=== PATIENT | male | born 1975 | race Caucasian/White ===

== ENCOUNTER 2020-05-15 20:26 | Emergency (ER) | payer OTHER ==
[~2020-05-15] VITALS: Ht 172.7 cm; Wt 87.6 kg
[2020-05-15] MEDS ORDERED: ZOLO50TA PO (20:34)
[2020-05-15] MEDS ORDERED: BUPIVACAINE HCL 0.5% 30 ML VIAL SC ONE (21:15)
[2020-05-15 22:04] VITALS: BP 132/89
== END 2020-05-15 22:07 | disposition home or self-care (01) ==
LOC: M ED 20:26
DX: S29.012A Strain of muscle and tendon of back wall of thorax, initial encounter (principal); X50.9XXA Other and unspecified overexertion or strenuous movements or postures, initial encounter; Y92.89 Other specified places as the place of occurrence of the external cause; F33.9 Major depressive disorder, recurrent, unspecified; Z79.899 Other long term (current) drug therapy

== ENCOUNTER → 2020-09-19 | Outpatient (CLI) | payer OTHER ==
[~2020-09-19] MED LIST: ZOLO50TA PO
--- NOTE | 2020-09-19 17:34 | REP ---
INDICATION: PAIN. COMPARISON: None. TECHNIQUE: Three views FINDINGS: AC joint shows minor spurring inferiorly and slight narrowing of the joint space. There is no elevation of the clavicle in relationship to the acromion. No visible fracture of the clavicle, scapula, ribs or humeral head. Minor degenerative changes inferior aspect of the glenohumeral joint without subluxation, dislocation or abnormal soft tissue calcification. IMPRESSION: 1. AC and glenohumeral joint minor degenerative changes. No subluxation, dislocation, AC joint separation or abnormal soft tissue calcification. <Electronically signed by Fan Jorgensen > 09/19/20 [id number]
== END ==
LOC: M WUC 16:18
PROVIDERS: ATTEND Physician Assistant
DX: M19.011 Primary osteoarthritis, right shoulder (principal)

== ENCOUNTER → 2021-02-09 | Outpatient (CLI) | payer OTHER | LOC: M SLEEP 20:00 | PROVIDERS: ATTEND Nurse Practitioner Family | DX: R40.0 Somnolence (principal) ==

== ENCOUNTER → 2021-04-13 | Outpatient (CLI) | payer OTHER | LOC: M SLEEP 20:00 | PROVIDERS: ATTEND Physician Assistant | DX: G47.33 Obstructive sleep apnea (adult) (pediatric) (principal); G47.31 Primary central sleep apnea ==

== ENCOUNTER 2023-03-02 23:54 | Emergency (ER) | payer OTHER | END 2023-03-03 00:40 | disposition left against medical advice (07) | LOC: M ED 23:54 | DX: Z53.21 Procedure and treatment not carried out due to patient leaving prior to being seen by health care provider (principal) ==